=== PATIENT | male | born 1950 | race Caucasian/White ===

== ENCOUNTER → 2016-05-24 | Outpatient (CLI) | payer OTHER, MEDICARE ==
[~2016-05-24] MED LIST: ACTOS30 M1 PO; BACTRIM DS 8001 TA1 PO; JANUVIA50 MG PO; LOPRESSOR100 M1 PO; METFORMIN500 MG PO
== END | disposition home or self-care (01) ==
LOC: US 03:08
DX: I10 Essential (primary) hypertension (principal); I65.22 Occlusion and stenosis of left carotid artery

== ENCOUNTER → 2017-01-14 | Outpatient (CLI) | payer MEDICARE ==
[2017-01-14 09:29] LABS: BILIRUBIN NEGATIVE (NEGATIVE); BLOOD NEGATIVE (NEGATIVE); CLARITY SL CLOUDY (CLEAR); COLOR YELLOW (YELLOW); GLUCOSE NEGATIVE (NEGATIVE); KETONE 1+ (NEGATIVE); LEUKO ESTERASE NEGATIVE (NEGATIVE); NITRITE NEGATIVE (NEGATIVE); SPECIFIC GRAVITY 1.015 (1.005-1.030); UROBILINOGEN 0.2 E.U./dl (0.2-1.0)
[2017-01-14 09:42] LABS: EPITHELIAL CELLS 0-2; WBC 0-2 wbc/hpf (0-5)
== END | disposition home or self-care (01) ==
LOC: LAB 08:51
PROVIDERS: Emergency Medicine
DX: N39.0 Urinary tract infection, site not specified (principal)

== ENCOUNTER → 2017-03-16 | Outpatient (CLI) | payer MEDICARE | END | disposition home or self-care (01) | LOC: LAB 08:31 | DX: Z13.9 Encounter for screening, unspecified (principal); E11.9 Type 2 diabetes mellitus without complications ==

== ENCOUNTER → 2017-06-04 | Outpatient (CLI) | payer MEDICARE | END | disposition home or self-care (01) | LOC: RESCLI 08:09 | DX: E11.9 Type 2 diabetes mellitus without complications (principal); Z79.4 Long term (current) use of insulin ==

== ENCOUNTER → 2019-03-13 | Outpatient (CLI) | payer MEDICARE | END | disposition home or self-care (01) | LOC: LAB 07:29 | DX: E11.9 Type 2 diabetes mellitus without complications (principal) ==

== ENCOUNTER → 2019-06-03 | Outpatient (CLI) | payer MEDICARE ==
[2019-06-03 08:29] LABS: BASO % 0.4 % (0.0-1.0); EOS # 0.2 10*3/uL (0.0-0.4); EOS % 3.8 % (1.0-4.0); HEMATOCRIT 40.7 % (42.0-52.0); LYMPH # 1.6 10*3/uL (1.3-4.4); LYMPH % 31.2 % (27.0-41.0); MEAN CELL VOLUME 92.1 fl (80.0-94.0); MEAN CORPUSCULAR HGB 29.4 pg (27.0-31.0); MEAN CORPUSCULAR HGB CONC 31.9 g/dl (33.0-37.0); MEAN PLATELET VOLUME 10.4 fl (9.6-12.3); MONO # 0.6 10*3/uL (0.1-1.0); MONO % 11.3 % (3.0-9.0); NEUT # 2.8 10*3/uL (2.3-7.9); NEUT % 53.1 % (47.0-73.0); PLATELET COUNT AUTOMATED 174 10*3/uL (130-400); RED BLOOD COUNT 4.42 10*6/uL (4.50-5.90); RED CELL DISTRI WIDTH 13.9 % (0-14.5); WHITE BLOOD COUNT 5.2 10*3/uL (4.8-10.8)
[2019-06-03 08:44] LABS: ALBUMIN 3.8 gm/dl (3.1-4.5); ALKALINE PHOSPHATASE 64 U/L (45-117); BUN 19 mg/dl (7-24); CHLORIDE 109 mmol/L (98-107); CHOLESTEROL 137 mg/dL (<200); CREATININE 1.14 mg/dL (0.70-1.30); HDL CHOLESTEROL 56 mg/dl (40-60); LDL CHOLESTEROL 67 mg/dL (9-159); POTASSIUM 4.7 mmol/L (3.5-5.1); SGOT/AST 17 IU/L (3-35); SGPT/ALT 24 U/L (12-78); SODIUM 141 mmol/L (136-145); TOTAL PROTEIN 7.2 gm/dL (6.4-8.2); TRIGLYCERIDES 72 mg/dl (<150); VLDL CHOLESTEROL 14 mg/dL (6-40)
[2019-06-03 09:17] LABS: VITAMIN D, 25-HYDROXY 75.5 ng/mL (30-100)
== END | disposition home or self-care (01) ==
LOC: LAB 07:48
PROVIDERS: Internal Medicine
DX: E11.9 Type 2 diabetes mellitus without complications (principal); E55.9 Vitamin D deficiency, unspecified

== ENCOUNTER → 2020-02-04 | Outpatient (CLI) | payer MEDICARE | END | disposition home or self-care (01) | LOC: RESCLI 09:39 | PROVIDERS: ATTEND Internal Medicine Nephrology | DX: E11.9 Type 2 diabetes mellitus without complications (principal); I10 Essential (primary) hypertension; Z79.4 Long term (current) use of insulin; Z79.899 Other long term (current) drug therapy ==

== ENCOUNTER → 2020-02-07 | Outpatient (CLI) | payer MEDICARE | END | disposition home or self-care (01) | LOC: LAB 08:37 | PROVIDERS: ATTEND Internal Medicine Nephrology | DX: E11.9 Type 2 diabetes mellitus without complications (principal) ==

== ENCOUNTER 2021-06-19 16:05 | Emergency (ER) | payer MEDICARE ==
[~2021-06-19] VITALS: Ht 157.5 cm; Wt 63.5 kg
[2021-06-19 16:29] LABS: BASO % 0.1 % (0.0-1.0); HEMATOCRIT 43.4 % (42.0-52.0); LYMPH # 0.7 10*3/uL (1.3-4.4); LYMPH % 9.5 % (27.0-41.0); MEAN CELL VOLUME 89.1 fl (80.0-94.0); MEAN CORPUSCULAR HGB 28.1 pg (27.0-31.0); MEAN CORPUSCULAR HGB CONC 31.6 g/dl (33.0-37.0); MEAN PLATELET VOLUME 9.8 fl (9.6-12.3); MONO # 0.5 10*3/uL (0.1-1.0); MONO % 6.4 % (3.0-9.0); NEUT # 6.1 10*3/uL (2.3-7.9); NEUT % 83.6 % (47.0-73.0); PLATELET COUNT AUTOMATED 169 10*3/uL (130-400); RED BLOOD COUNT 4.87 10*6/uL (4.50-5.90); RED CELL DISTRI WIDTH 15.9 % (0-14.5); WHITE BLOOD COUNT 7.3 10*3/uL (4.8-10.8)
[2021-06-19 16:45] LABS: INTERNATIONAL NORM RATIO 1.2 (2.0-3.5)
[2021-06-19 17:04] LABS: ALKALINE PHOSPHATASE 56 U/L (45-117); BUN 24 mg/dl (7-24); CHLORIDE 108 mmol/L (98-107); CREATININE 1.05 mg/dL (0.70-1.30); LIPASE 94 U/L (73-393); POTASSIUM 3.4 mmol/L (3.5-5.1); SGOT/AST 21 IU/L (3-35); SGPT/ALT 23 U/L (12-78); SODIUM 139 mmol/L (136-145); TOTAL PROTEIN 6.9 gm/dL (6.4-8.2)
== END 2021-06-19 17:30 | disposition home or self-care (01) ==
LOC: ED 16:05
PROVIDERS: Emergency Medicine
DX: E11.649 Type 2 diabetes mellitus with hypoglycemia without coma (principal); Z79.899 Other long term (current) drug therapy; Z98.890 Other specified postprocedural states

== ENCOUNTER 2021-06-23 07:42 | Emergency (ER) | payer MEDICARE | END 2021-06-23 09:51 | disposition home or self-care (01) | LOC: ED 07:42 | DX: M25.552 Pain in left hip (principal); E11.9 Type 2 diabetes mellitus without complications; Z79.899 Other long term (current) drug therapy ==

== ENCOUNTER → 2022-01-10 | Outpatient (CLI) | payer MEDICARE ==
[2022-01-10 10:04] LABS: BASO % 0.7 % (0.0-1.0); EOS # 0.1 10*3/uL (0.0-0.4); EOS % 1.7 % (1.0-4.0); HEMATOCRIT 44.4 % (42.0-52.0); LYMPH # 1.2 10*3/uL (1.3-4.4); LYMPH % 39.5 % (27.0-41.0); MEAN CELL VOLUME 93.7 fl (80.0-94.0); MEAN CORPUSCULAR HGB 29.7 pg (27.0-31.0); MEAN CORPUSCULAR HGB CONC 31.8 g/dl (33.0-37.0); MEAN PLATELET VOLUME 9.2 fl (9.6-12.3); MONO # 0.3 10*3/uL (0.1-1.0); MONO % 10.2 % (3.0-9.0); NEUT # 1.4 10*3/uL (2.3-7.9); NEUT % 47.9 % (47.0-73.0); PLATELET COUNT AUTOMATED 156 10*3/uL (130-400); RED BLOOD COUNT 4.74 10*6/uL (4.50-5.90); WHITE BLOOD COUNT 2.9 10*3/uL (4.8-10.8)
[2022-01-10 10:28] LABS: ALKALINE PHOSPHATASE 81 U/L (45-117); BUN 14 mg/dl (7-24); CHLORIDE 115 mmol/L (98-107); CHOLESTEROL 173 mg/dL (<200); CREATININE 1.05 mg/dL (0.70-1.30); FREE T4 0.91 ng/dl (0.76-1.46); LDL CHOLESTEROL 68 mg/dL (9-159); POTASSIUM 3.6 mmol/L (3.5-5.1); SGOT/AST 15 IU/L (3-35); SGPT/ALT 17 U/L (12-78); SODIUM 147 mmol/L (136-145); TOTAL PROTEIN 6.8 gm/dL (6.4-8.2); TRIGLYCERIDES 76 mg/dl (<150)
[2022-01-10 10:34] LABS: THYROID STIM HORMONE (HS) 0.454 uIU/ml (0.358-4.75)
== END | disposition home or self-care (01) ==
LOC: LAB 09:35
PROVIDERS: Internal Medicine; ATTEND Internal Medicine
DX: E55.9 Vitamin D deficiency, unspecified (principal); R79.89 Other specified abnormal findings of blood chemistry; R53.81 Other malaise; D51.9 Vitamin B12 deficiency anemia, unspecified; Z13.21 Encounter for screening for nutritional disorder; Z13.1 Encounter for screening for diabetes mellitus; Z13.0 Encounter for screening for diseases of the blood and blood-forming organs and certain disorders involving the immune mechanism; D52.9 Folate deficiency anemia, unspecified; Z13.220 Encounter for screening for lipoid disorders; Z13.228 Encounter for screening for other metabolic disorders; Z13.89 Encounter for screening for other disorder

== ENCOUNTER → 2022-02-06 | Outpatient (CLI) | payer MEDICARE | END | disposition home or self-care (01) | LOC: MRI 02-05 06:39 | PROVIDERS: ATTEND Internal Medicine | DX: I67.82 Cerebral ischemia (principal); G93.40 Encephalopathy, unspecified; E11.65 Type 2 diabetes mellitus with hyperglycemia; I10 Essential (primary) hypertension ==

== ENCOUNTER → 2022-05-10 | Outpatient (CLI) | payer OTHER ==
[2022-05-10 12:29] LABS: BASO % 0.5 % (0.0-1.0); EOS # 0.2 10*3/uL (0.0-0.4); EOS % 2.5 % (1.0-4.0); LYMPH # 1.5 10*3/uL (1.3-4.4); LYMPH % 22.9 % (27.0-41.0); MEAN CORPUSCULAR HGB 27.7 pg (27.0-31.0); MEAN CORPUSCULAR HGB CONC 32.6 g/dl (33.0-37.0); MEAN PLATELET VOLUME 10.1 fl (9.6-12.3); MONO # 0.4 10*3/uL (0.1-1.0); MONO % 6.8 % (3.0-9.0); NEUT # 4.3 10*3/uL (2.3-7.9); NEUT % 66.8 % (47.0-73.0); PLATELET COUNT AUTOMATED 219 10*3/uL (130-400); RED BLOOD COUNT 5.53 10*6/uL (4.50-5.90); RED CELL DISTRI WIDTH 14.6 % (0-14.5); WHITE BLOOD COUNT 6.4 10*3/uL (4.8-10.8)
[2022-05-10 12:47] LABS: ALKALINE PHOSPHATASE 126 U/L (46-116); BUN 19 mg/dl (9-23); CHLORIDE 103 mmol/L (98-107); CHOLESTEROL 154 mg/dL (<200); FREE T4 1.12 ng/dl (0.89-1.76); LDL CHOLESTEROL 73 mg/dL (9-159); POTASSIUM 3.8 mmol/L (3.4-5.1); SGPT/ALT < 7 U/L (10-49); THYROID STIM HORMONE (HS) 0.701 uIU/ml (0.550-4.780); TRIGLYCERIDES 100 mg/dl (<150)
[2022-05-10 13:15] LABS: VITAMIN D, 25-HYDROXY 24.7 ng/mL (30-100)
== END | disposition home or self-care (01) ==
LOC: LAB 00:54 → RESCLI 13:37 → LAB 14:35
PROVIDERS: Internal Medicine; ATTEND Internal Medicine
DX: E11.65 Type 2 diabetes mellitus with hyperglycemia (principal); I10 Essential (primary) hypertension; F03.90 Unspecified dementia, unspecified severity, without behavioral disturbance, psychotic disturbance, mood disturbance, and anxiety; K21.9 Gastro-esophageal reflux disease without esophagitis; E55.9 Vitamin D deficiency, unspecified; Z13.0 Encounter for screening for diseases of the blood and blood-forming organs and certain disorders involving the immune mechanism; Z98.890 Other specified postprocedural states; Z13.1 Encounter for screening for diabetes mellitus; Z79.84 Long term (current) use of oral hypoglycemic drugs; Z13.21 Encounter for screening for nutritional disorder; Z13.228 Encounter for screening for other metabolic disorders; Z13.9 Encounter for screening, unspecified; Z13.89 Encounter for screening for other disorder; Z13.820 Encounter for screening for osteoporosis; Z79.899 Other long term (current) drug therapy

== ENCOUNTER 2023-02-03 12:45 | Emergency (ER) | payer OTHER ==
[~2023-02-03] VITALS: Ht 167.6 cm; Wt 49.9 kg
[2023-02-03 13:52] LABS: BASO % 0.1 % (0.0-1.0); HEMATOCRIT 44.8 % (42.0-52.0); LYMPH % 14.4 % (27.0-41.0); MEAN CELL VOLUME 90.7 fl (80.0-94.0); MEAN CORPUSCULAR HGB 30.8 pg (27.0-31.0); MEAN CORPUSCULAR HGB CONC 33.9 g/dl (33.0-37.0); MEAN PLATELET VOLUME 10.8 fl (9.6-12.3); MONO # 0.5 10*3/uL (0.1-1.0); MONO % 7.3 % (3.0-9.0); NEUT # 5.3 10*3/uL (2.3-7.9); NEUT % 77.6 % (47.0-73.0); PLATELET COUNT AUTOMATED 227 10*3/uL (130-400); RED BLOOD COUNT 4.94 10*6/uL (4.50-5.90); WHITE BLOOD COUNT 6.9 10*3/uL (4.8-10.8)
[2023-02-03 15:17] LABS: ALKALINE PHOSPHATASE 65 U/L (46-116); BUN 17 mg/dl (9-23); CHLORIDE 104 mmol/L (98-107); LIPASE 118 U/L (12-53); POTASSIUM 3.7 mmol/L (3.4-5.1); SGPT/ALT 11 U/L (10-49); TOTAL PROTEIN 7.4 gm/dL (6.0-8.0)
[2023-02-03] MEDS ORDERED: PERCOCET 5-3251 EACH PO (18:46)
[2023-02-03] MEDS ORDERED: AMOX-CLAV 875-1 EACH PO (18:46)
[2023-02-03] MEDS ORDERED: ONDANSETRON4 MG SL (18:46)
[2023-02-03] MEDS ORDERED: COLACE 2-IN-11 EACH PO (18:46)
== END 2023-02-03 19:39 | disposition home or self-care (01) ==
LOC: ED 12:45
PROVIDERS: Emergency Medicine
DX: K52.9 Noninfective gastroenteritis and colitis, unspecified (principal); R11.2 Nausea with vomiting, unspecified; E11.9 Type 2 diabetes mellitus without complications; Z98.890 Other specified postprocedural states

== ENCOUNTER 2023-02-07 13:29 | Emergency (ER) | payer OTHER ==
[~2023-02-07] VITALS: Ht 167.6 cm; Wt 54.9 kg
[~2023-02-07 13:29] MED LIST changes: +AMOX-CLAV 875-1 EACH PO; +COLACE 2-IN-11 EACH PO; +ONDANSETRON4 MG SL; +PERCOCET 5-3251 EACH PO
[2023-02-07 13:57] LABS: BASO % 0.3 % (0.0-1.0); EOS # 0.1 10*3/uL (0.0-0.4); EOS % 1.2 % (1.0-4.0); HEMATOCRIT 42.9 % (42.0-52.0); LYMPH # 1.7 10*3/uL (1.3-4.4); LYMPH % 29.4 % (27.0-41.0); MEAN CELL VOLUME 92.3 fl (80.0-94.0); MEAN CORPUSCULAR HGB 29.9 pg (27.0-31.0); MEAN CORPUSCULAR HGB CONC 32.4 g/dl (33.0-37.0); MEAN PLATELET VOLUME 9.6 fl (9.6-12.3); MONO # 0.4 10*3/uL (0.1-1.0); MONO % 6.4 % (3.0-9.0); NEUT # 3.6 10*3/uL (2.3-7.9); NEUT % 62.4 % (47.0-73.0); PLATELET COUNT AUTOMATED 236 10*3/uL (130-400); RED BLOOD COUNT 4.65 10*6/uL (4.50-5.90); RED CELL DISTRI WIDTH 13.4 % (0-14.5); WHITE BLOOD COUNT 5.8 10*3/uL (4.8-10.8)
[2023-02-07 14:20] LABS: BUN 11 mg/dl (9-23); CHLORIDE 108 mmol/L (98-107); POTASSIUM 3.1 mmol/L (3.4-5.1)
[2023-02-07] MEDS ORDERED: REMERON15 M2 PO (15:52)
== END 2023-02-07 17:00 | disposition home or self-care (01) ==
LOC: ED 13:29
PROVIDERS: Family Medicine
DX: F03.90 Unspecified dementia, unspecified severity, without behavioral disturbance, psychotic disturbance, mood disturbance, and anxiety (principal); E87.6 Hypokalemia; R63.0 Anorexia; E11.9 Type 2 diabetes mellitus without complications; Z68.1 Body mass index [BMI] 19.9 or less, adult; Z98.890 Other specified postprocedural states

== ENCOUNTER 2023-05-19 13:00 | Inpatient (IN) | payer OTHER ==
[~2023-05-19] VITALS: Ht 167.6 cm; Wt 54.6 kg
[~2023-05-19 13:00] MED LIST changes: +LEVETIRACETAM500 MG PO; +METHYLPHENIDATE5 M1 PO; +REMERON15 M2 PO; +RITALIN5 MG PO; +RIVASTIGMINE1 EAC1 T
[2023-05-19 13:30] VITALS: BP 142/95
[2023-05-19] MEDS ORDERED: NAMENDA-5 PO (14:49)
[2023-05-19] MEDS ORDERED: NAMENDA5 M1 PO (14:49)
[2023-05-19] MEDS ORDERED: NAMENDA10 MG PO ×2 (14:50→17:29)
[2023-05-19] MEDS ORDERED: LORAZEPAM I2 MG/1 ML PO (17:30)
[2023-05-19] MEDS ORDERED: SINEMET 10-1001 EACH PO (17:32)
[2023-05-19] MEDS ORDERED: METFORMIN HYDR500 MG PO (17:32)
[2023-05-19 18:00] VITALS: BP 111/75
[2023-05-20] VITALS: BP 40/18
== END 2023-05-20 00:51 | DRG 101 ==
LOC: 4E 13:00
PROVIDERS: ADMIT Internal Medicine; ATTEND Internal Medicine
DX: G40.901 Epilepsy, unspecified, not intractable, with status epilepticus (principal); R73.9 Hyperglycemia, unspecified; Z51.5 Encounter for palliative care; Z66 Do not resuscitate